=== PATIENT | male | born 1940 | race Caucasian/White ===

== ENCOUNTER 2017-05-22 18:40 | Inpatient (IN) | payer MEDICARE, OTHER ==
[~2017-05-22] VITALS: Ht 182.9 cm; Wt 118.6 kg
[~2017-05-22 18:40] MED LIST: ALLEGRA180 MG PO; ASPIRIN LOW81 M1 OR; LIPITOR20 MG PO; MULTI VIT PO; PREDNISONE10 MG PO; PRILOSEC20 MG/CAP PO
--- NOTE | 2017-05-22 19:00 | NUR ---
PT TO RM 15 VIA WHEELCHAIR.
[2017-05-22 19:42] LABS: HEMATOCRIT 42.6 % (39.0-50.0); HEMOGLOBIN 14.4 g/dl (14.0-18.0); IMMATURE GRANULOCYTES 0.8 % (0.0-1.0); MEAN CELL VOLUME 88.9 fL CALC (80.0-100.0); MEAN CORPUSCULAR HGB 30.1 pG CALC (26.0-32.0); MEAN CORPUSCULAR HGB CONC 33.8 g/L CALC (32.0-36.0); NEUT# 11.22 thou/uL (1.82-7.42); RED BLOOD COUNT 4.79 mill/uL (4.70-6.10); RED CELL DISTRI WIDTH 13.7 % (11.5-15.5)
[2017-05-22 19:54] LABS: INFLUENZA A NONE DETECTED (NONE DETECT); INFLUENZA B NONE DETECTED (NONE DETECT)
[2017-05-22 19:56] LABS: ALBUMIN 4.1 g/dL (3.2-5.0); ALKALINE PHOSPHATASE 115 u/l (38-126); ANION GAP 17 (6-22 (CALC)); BUN 18 mg/dL (8-23); BUN/CREATININE RATIO 17 (12-20 (CALC)); CALCIUM 9.4 mg/dL (8.4-10.2); CARBON DIOXIDE 21 mmol/l (22-30); CHLORIDE 97 mmol/l (95-108); GFR > 60 ML/MIN (>=60 (CALC)); GFR FOR AFR.AMER. > 60 ML/MIN (>=60 (CALC)); GLUCOSE 184 mg/dL (82-115); POTASSIUM 3.7 mmol/l (3.5-5.1); SGOT/AST 35 u/l (19-48); SGPT/ALT 52 u/l (11-66); SODIUM 132 mmol/l (137-146); TOTAL PROTEIN 7.3 g/dL (6.3-8.2)
[2017-05-22 20:00] LABS: INTERNATIONAL NORMALIZED RATIO 1.1 RATIO (0.7-1.3); PROTHROMBIN TIME 12.2 SECONDS (9.0-12.5)
[2017-05-22 20:07] LABS: MYOGLOBIN 174 ng/mL (0 - 121)
--- NOTE | 2017-05-22 20:20 | NUR ---
PT PROVIDED MEDS ORDERED, ROCEPHIN, ZITHROMAX, TYLENOL, IVF. PT PLACED ON O-2 2 LPM NC. RESP HERE FOR RESP TX.
--- NOTE | 2017-05-22 21:32 | NUR ---
PT PROVIDED BSC FOR BM, DID HAVE NORMAL ONE TONIGHT. BOTH ABX FINISHED, IVF CONTINUES. REPORT CALLED TO SHABANA, TO FLOOR SOON.
--- NOTE | 2017-05-22 21:35 | NUR ---
PT ARRIVED TO UNIT VIA STRETCHER WITH ER STAFF. STAND PIVOT TO BED WITH ONE PERSON ASSIST. DENIES PAIN UPON ADMISSION. HARD OF HEARING; WEARS HEARING AIDS BUT DOES NOT HAVE THEM WITH HIM. RESPIRATIONS EVEN AND UNLABROED ON 2L OF OXYGEN VIA NC. PLAN OF CARE DISCUSSED. PT ENCOURAGED TO VERBALIZE CONCERNS. STATES UNDERSTANDING. ORIENTED TO ROOM AND CALL LIGHT SYSTEM. CALLL LIGHT WITHIN REACH.
--- NOTE | 2017-05-22 21:48 | NUR ---
PT TAKEN TO ROOM 268 WITHOUT INCIDENT.
[2017-05-22 21:52] VITALS: BP 102/66
[2017-05-23] VITALS (8 sets, daily range): BP systolic 100–115; BP diastolic 61–76
--- NOTE | 2017-05-23 03:21 | NUR ---
PT'S TEMPERATURE INCREASED TO 101.3 AFTER MIDNIGHT. TYLENOL 650MG GIVEN AND F/U TEMP IS 103.2. ICE PACKS APPLIED TO PT. WILL RECHECK AND F/U WITH .
[2017-05-23 04:02] LABS: URINE BILIRUBIN - DIPSTICK NEGATIVE (NEGATIVE); URINE BLOOD DIPSTICK MODERATE (NEGATIVE); URINE COLOR YELLOW; URINE GLUCOSE - DIPSTICK NEGATIVE (NEGATIVE); URINE KETONE 15 mg/dL (NEGATIVE); URINE LEUK ESTERASE NEGATIVE (NEGATIVE); URINE NITRITE - DIPSTICK NEGATIVE (Negative); URINE PROTEIN - DIPSTICK 30 mg/dL (NEG-TRACE); URINE UROBILINOGEN - DIPSTICK 0.2 E.U./dL (0.2)
[2017-05-23 04:28] LABS: URINE CLARITY CLEAR
[2017-05-23 04:29] LABS: URINE BACTERIA FEW hpf; URINE MUCUS MANY hpf (NONE-FEW)
[2017-05-23 04:30] LABS: URINE SQUAMOUS EPITHELIAL CELL FEW EPI/hpf (0-FEW)
--- NOTE | 2017-05-23 07:00 | NUR ---
SHIFT CHANGE REPORT FROM ALETHA DONALD SLEEPING IN SIDE-LYING POSITION, O2 @ 2L VIA NC IN PLACE, BREATNING EVEN AND NON-LABORED AT THIS TIME, CALL ALVAREZ IN REACH.
--- NOTE | 2017-05-23 07:45 | NUR ---
RECEIVED REPORT FROM JV DONALD. PT ASSESSMENT COMPLETED. A & O X3. PUPILS ROUND AND REACTIVE TO LIGHT BUT NOT EQUAL. RT PUPIL IS SLIGHTLY LARGER. RESPIRATIONS LABORED. RT LUNG SOUNDS COURSE. LT LUNG SOUNDS CLEAR. O2 SAT 92%. RR 20. PT STATED HE WAS HAVING TROUBLE BREATHING. BASSAM RN QUALITY WAS NOTIFIED. BREATHING TREATMENT WAS ORDERED. RESPIRATORY THERAPY NOTIFIED. PT TRANSFERED SELF TO RECLINER FOR EASE OF BREATHING. RADIAL AND PEDAL PULSES WERE STRONG. MOVES ALL EXTREMITIES WELL. PT DENIES ANY PAIN. WILL CONTINUE TO MONITOR. CALL LIGHT PLACED WITHIN REACH AND ENCOURAGED TO CALL FOR ASSISTANCE.
--- NOTE | 2017-05-23 08:30 | NUR ---
PT SITTING UP IN RECLINER AT BEDSIDE. NO COUGH. RESPIRATIONS EVEN AND UNLABORED ON O2 2L BY NASAL CANNULA. NO DISTRESS NOTED.
--- NOTE | 2017-05-23 09:13 | NUR ---
STUDENT NURSE REPORT PT C/O DIFFICULTY BREATHING, ASSESSED AND REPOSITIOED IN BED, AUTOMOBILE DAMAGE FIELD APPRAISER NOTIFIED AND WROTE ORDERS, CHECKERING MACHINE ADJUSTER CALLED TO EVALUATE AND TREAT, WILL CONTINUE TO MONITOR.
[2017-05-23 09:44] LABS: HEMATOCRIT 39.6 % (39.0-50.0); HEMOGLOBIN 13.3 g/dl (14.0-18.0); IMMATURE GRANULOCYTES 0.7 % (0.0-1.0); MEAN CELL VOLUME 91.5 fL CALC (80.0-100.0); MEAN CORPUSCULAR HGB 30.7 pG CALC (26.0-32.0); MEAN CORPUSCULAR HGB CONC 33.6 g/L CALC (32.0-36.0); NEUT# 10.13 thou/uL (1.82-7.42); RED BLOOD COUNT 4.33 mill/uL (4.70-6.10)
[2017-05-23 09:54] LABS: ANION GAP 16 (6-22 (CALC)); BUN 19 mg/dL (8-23); BUN/CREATININE RATIO 19 (12-20 (CALC)); CALCIUM 8.8 mg/dL (8.4-10.2); CARBON DIOXIDE 23 mmol/l (22-30); CHLORIDE 100 mmol/l (95-108); GFR > 60 ML/MIN (>=60 (CALC)); GFR FOR AFR.AMER. > 60 ML/MIN (>=60 (CALC)); GLUCOSE 173 mg/dL (82-115); MAGNESIUM 1.9 mg/dL (1.6-2.3); POTASSIUM 3.7 mmol/l (3.5-5.1); SODIUM 135 mmol/l (137-146)
--- NOTE | 2017-05-23 10:39 | NUR ---
SITTING UP IN RECLINER AT THIS TIME AND STATES HIS BREATHING IS MUCH BETTER SINCE GETTING OOB AND HAVING BREATHING TX, WILL CONTINUE TO MONITOR.
--- NOTE | 2017-05-23 16:00 | NUR ---
SITTING UP IN RECLINER, SPOUSE AND FRIENDS VISITING, ALL NEEDS ADDRESSED, CALL ALVAREZ IN REACH.
--- NOTE | 2017-05-23 17:00 | NUR ---
RADAR ENGINEERING TEACHER TEMP @ 102.2 @ 1700, TYLENOL GIVEN PER ORDER, TEMP AT 99.9 @ 1830, HS SHIFT WILL CONTINUE TO MONITOR.
--- NOTE | 2017-05-23 20:49 | NUR ---
PT IN BED WATCHING TV, RESPIRATIONS EVEN AND UNLABORED ON O2 @2L VIA NC. DENIES PAIN OR DISCOMFORT, TELE IN PLACE. CALL LIGHT IN REACH, WILL CONTINUE TO MONITOR.
--- NOTE | 2017-05-23 23:00 | NUR ---
DOWN TO RADIOLOGY FOR CT SCAN VIA W/C ACCOMPANIED BY ANDREY HERNANDEZ.
--- NOTE | 2017-05-23 23:35 | NUR ---
RETURNED TO ROOM AFTER CT SCAN VIA W/C ACCOMPANIED BY ANDREY HERNANDEZ, PT A/O X3, CALL LIGHT IN REACH.
--- NOTE | 2017-05-24 03:59 | NUR ---
RESTING ON RIGHT SIDE WITH EYES CLOSED, RESPIRATIONS EVEN AND UNLABORED ON O2 @2L VIA NC. CALL LIGHT IN REACH.
[2017-05-24 04:40] VITALS: BP 104/70
[2017-05-24 06:40] LABS: HEMOGLOBIN 12.2 g/dl (14.0-18.0); IMMATURE GRANULOCYTES 0.7 % (0.0-1.0); MEAN CELL VOLUME 88.8 fL CALC (80.0-100.0); MEAN CORPUSCULAR HGB CONC 34.9 g/L CALC (32.0-36.0); NEUT# 10.65 thou/uL (1.82-7.42); RED BLOOD COUNT 3.94 mill/uL (4.70-6.10); RED CELL DISTRI WIDTH 14.4 % (11.5-15.5)
[2017-05-24 07:02] LABS: ANION GAP 16 (6-22 (CALC)); BUN 17 mg/dL (8-23); BUN/CREATININE RATIO 21 (12-20 (CALC)); CARBON DIOXIDE 22 mmol/l (22-30); CHLORIDE 101 mmol/l (95-108); CREATININE 0.8 mg/dL (0.7-1.3); GFR > 60 ML/MIN (>=60 (CALC)); GFR FOR AFR.AMER. > 60 ML/MIN (>=60 (CALC)); GLUCOSE 207 mg/dL (82-115); MAGNESIUM 2.2 mg/dL (1.6-2.3); SODIUM 135 mmol/l (137-146)
--- NOTE | 2017-05-24 07:19 | NUR ---
BEDSIDE REPORT RECEIVED FROM JV HALL. PT SITTING IN CHAIR AT BEDSIDE. STATES "I FEEL MUCH BETTER AND STRONGER." PLAN OF CARE DISCUSSED. REPORTING OF CONCERNS ENCOURAGED. CALL LIGHT REVIEWED AND IN REACH. PT STATES UNDERSTANDING.
[2017-05-24 08:34] VITALS: BP 103/66
--- NOTE | 2017-05-24 08:45 | NUR ---
PT PROVIDED WITH INCENTIVE SPIROMETER. 2500 ML INCENTIVE VOLUME ACHIEVED, GOAL OF 3000 ML SET. PT EDUCATED ON USE AND INDICATION. PT STATES UNDERSTANDING.
--- NOTE | 2017-05-24 10:48 | NUR ---
Drug Selected: Vancomycin Age: 76 years Weight: 118 kg Height: 72 in Gender: Male SCR: 1 mg/dl ROUNDED UP DUE TO AGE Give Vancomycin 1000 mg q8 hrs NEXT TROUGH WILL BE 05/25/17 AT 0230 PNEUMONIA
--- NOTE | 2017-05-24 10:59 | NUR ---
DR. SRINIVASAN IN TO SEE PT AT THIS TIME.
[2017-05-24 12:35] VITALS: BP 104/66
--- NOTE | 2017-05-24 15:55 | NUR ---
PT SITTING IN CHAIR AT BEDSIDE. SPOUSE AND MULTIPLE FRIENDS AT BEDSIDE. PT DENIES COMPLAINTS. REPORTS FREQUENT USE OF IS. PT ENCOURAGED TO AMBULATE TOLERATED. PT STATES UNDERSTANDING.
--- NOTE | 2017-05-24 16:30 | NUR ---
PT AMBULATING IN HALLWAYS. STEADY GAIT. TOLERATING ACTIVITY WELL.
[2017-05-24 17:35] VITALS: BP 112/68
[2017-05-24 18:00] VITALS: BP 122/75
--- NOTE | 2017-05-24 19:20 | NUR ---
PT RESTING IN BED WATCHING TV. ALERT AND ORIENTED. RESP EVEN AND UNLABORED. NO DISTRES NOTED. TELE IN PLACE. ABD DISTENDED, SOFT; ACTIVE BOWEL SOUNDS. TRACE EDEMA NOTED ANKLES BILAT; PT ENCOURAGED TO ELEVATE. PEDAL PULSES PALPATED BILAT. IV LFA PATENT, FLUSHED WITHOUT ANY DIFFICULTY. PT ENCOURAGED TO USE INCENTIVE SPIROMETER. PT DENIES ANY PAIN OR DISCOMFORT. SAFETY PRECAUTIONS REINFORCED. FREQUENT ROUNDS MADE. CALL LIGHT WITHIN REACH.
[2017-05-24 23:57] VITALS: BP 125/78
--- NOTE | 2017-05-25 | NUR ---
PT RESTING IN BED. RESP EVEN AND UNLABORED, O2 IN PLACE. NO DISTRESS NOTED. PT DENIES ANY PAIN OR DISCOMFORT. TELE IN PLACE. SAFETY PRECAUTIONS REINFORCED. CALL LIGHT WITHIN REACH.
[2017-05-25 02:52] LABS: HEMATOCRIT 34.5 % (39.0-50.0); HEMOGLOBIN 12.1 g/dl (14.0-18.0); IMMATURE GRANULOCYTES 1.4 % (0.0-1.0); MEAN CORPUSCULAR HGB 30.9 pG CALC (26.0-32.0); MEAN CORPUSCULAR HGB CONC 35.1 g/L CALC (32.0-36.0); NEUT# 11.98 thou/uL (1.82-7.42); RED BLOOD COUNT 3.92 mill/uL (4.70-6.10); RED CELL DISTRI WIDTH 14.5 % (11.5-15.5)
[2017-05-25 03:13] LABS: ANION GAP 14 (6-22 (CALC)); BUN 19 mg/dL (8-23); BUN/CREATININE RATIO 24 (12-20 (CALC)); CALCIUM 9.2 mg/dL (8.4-10.2); CARBON DIOXIDE 23 mmol/l (22-30); CHLORIDE 105 mmol/l (95-108); CREATININE 0.8 mg/dL (0.7-1.3); GFR > 60 ML/MIN (>=60 (CALC)); GFR FOR AFR.AMER. > 60 ML/MIN (>=60 (CALC)); GLUCOSE 219 mg/dL (82-115); POTASSIUM 3.8 mmol/l (3.5-5.1); SODIUM 138 mmol/l (137-146)
--- NOTE | 2017-05-25 04:00 | NUR ---
PT OOB SITTING IN BEDSIDE CHAIR. PT DENIES ANY PAIN OR DISCOMFORT. RESP EVEN AND UNLABORED. TELE IN PLACE. IV PATENT. ASSESSMENT UNCHANGED. SAFETY PRECAUTIONS REINFORCED. CALL LIGHT WITHIN REACH.
[2017-05-25 05:08] VITALS: BP 119/78
--- NOTE | 2017-05-25 07:42 | NUR ---
REPORT RECEIVED FROM JV VELAZQUEZ. PT SITTING IN CHAIR AT BEDSIDE. DENIES PAIN. REPORTING OF CONCERNS ENCOURAGED. PLAN OF CARE DISCUSSED. IS USE ENCOURAGED. INCREASED ACTIVITY ENCOURAGED. FALL PRECAUTIONS REINFORCED. CALL LIGHT REVIEWED AND IN REACH. PT STATES UNDERSTANDING.
--- NOTE | 2017-05-25 08:59 | NUR ---
Vancomycin single level analysis: Current dose being given: 1000 mg Current dosing interval: 8 hrs Current infusion time (hrs): 2 Single level Trough Data: Trough level obtained: 8 mcg/ml Timing of trough - Number of hours before next dose: 0.08 Hrs Desired peak: 30 mcg/ml Desired trough: 15 mcg/ml Give Vancomycin 1250 mg q 8 hrs. Infuse over 2 hrs NEXT TROUGH WILL BE 1030 ON 05/26/17
[2017-05-25 09:23] VITALS: BP 116/56
--- NOTE | 2017-05-25 10:00 | NUR ---
DR. SRINIVASAN IN TO SEE PT AT THIS TIME.
[2017-05-25] MEDS ORDERED: LEVAQUIN750 MG PO (10:29)
[2017-05-25] MEDS ORDERED: DOXYCYCL HYC100 MG PO (10:29)
[2017-05-25 12:30] VITALS: BP 126/75
--- NOTE | 2017-05-25 13:46 | NUR ---
Discharge instructions given. Patient verbalizes understanding of same. Discharged in stable condition via Wheelchair to Home with spouse. All belongings sent with pt.
== END 2017-05-25 13:45 | disposition home or self-care (01) | DRG 871 ==
LOC: ED 18:40 → ED-I 21:00 → ED 21:19 → MS2 21:20
PROVIDERS: Emergency Medicine; Internal Medicine; Nurse Practitioner Family; ADMIT Internal Medicine; ATTEND Internal Medicine
DX: A41.9 Sepsis, unspecified organism (principal); J18.9 Pneumonia, unspecified organism; J96.01 Acute respiratory failure with hypoxia; R65.20 Severe sepsis without septic shock; E78.5 Hyperlipidemia, unspecified; M35.3 Polymyalgia rheumatica; K21.9 Gastro-esophageal reflux disease without esophagitis; M19.90 Unspecified osteoarthritis, unspecified site; Z87.891 Personal history of nicotine dependence; R05 Cough; R50.9 Fever, unspecified
CPT/HCPCS: J0692; J1650; J3370; Q9967; S0164

== ENCOUNTER 2020-05-09 09:29 | Day surgery (SDC) | payer MEDICARE ==
[~2020-05-09] VITALS: Ht 182.9 cm; Wt 117.9 kg
[~2020-05-09 09:29] MED LIST changes: +B121000 MCG PO; +CIALIS5 MG PO; +DOXYCYCL HYC100 MG PO; +LEVAQUIN750 MG PO
[2020-05-09 11:56] VITALS: BP 109/62
--- NOTE | 2020-05-11 09:19 | NUR ---
PER PHYSICIAN, NOTIFIED PATIENT OF COLONOSCOPY FINDINGS; DIVERTICULOSIS AND INTERNAL HEMORRHOIDS. RECOMMENDATIONS; HIGH FIBER DIET, OVER THE COUNTER SUPPOSITORIES AND HYDROCORTISON OINTMENT FOR SYMPTOMATIC HEMORRHOIDAL TREATMEN. NO NEED FOR FURTHER COLONOSCOPIC SURVEILLANCE UNLESS SYMPTOMATIC. PATIENT AGREED TO INFORMATION GIVEN. REPORT FORWARDED TO PRIMARY CARE FOR CONTINUITY OF CARE.
== END 2020-05-09 11:13 | disposition home or self-care (01) ==
LOC: ENDO 09:29 → ORM 10:40 → ENDO 10:40 → ORM 12:00
PROVIDERS: ATTEND Surgery
PROC: 0DJD8ZZ Inspection of Lower Intestinal Tract, Via Natural or Artificial Opening Endoscopic (ICD-10-PCS; principal; 2020-05-09)
DX: Z12.11 Encounter for screening for malignant neoplasm of colon (principal); K57.30 Diverticulosis of large intestine without perforation or abscess without bleeding; K64.8 Other hemorrhoids; M35.3 Polymyalgia rheumatica; E78.5 Hyperlipidemia, unspecified; Z80.0 Family history of malignant neoplasm of digestive organs; Z86.010 Personal history of colon polyps; Z20.828 Contact with and (suspected) exposure to other viral communicable diseases